=== PATIENT | female | born 2000 | race Two or more races ===

== ENCOUNTER 2022-01-05 22:46 | Emergency (ER) | payer OTHER ==
[~2022-01-05] VITALS: Ht 160 cm; Wt 77.1 kg
[2022-01-06] MEDS ORDERED: MIRALAX510 GM PO (06:23)
[2022-01-06] MEDS ORDERED: INTESTINEX680 M1 PO (06:23)
== END 2022-01-06 06:39 ==
LOC: ER 22:46
DX: K62.5 Hemorrhage of anus and rectum (principal)